=== PATIENT | female | born 1980 | race Caucasian/White ===

== ENCOUNTER 2020-02-02 07:08 | Emergency (ER) | payer OTHER ==
[2020-02-02] MEDS ORDERED: HYDROmorphone 1 MG/ML CARPUJECT IVP STA (07:22)
[2020-02-02] MEDS ORDERED: ONDANSETRON 4 MG/2 ML VIAL IVP STA (07:22)
--- NOTE | 2020-02-02 07:27 | ED Physician Documentation ---
PD HPI ABD PAIN - Stated complaint Stated Complaint: ABD PX - History obtained from History obtained from: Patient - Additional information Additional information: Previously healthy 40-year-old woman with no history of abdominal issues or a bdominal surgeries presents with sudden onset lower abdominal pain that is central starting at 6 AM. She never had this before. No trouble with bowel movements or urination. She has nauseous. Denies vaginal discharge or bleeding. Last menses was approximately 10 days ago. She is trying to get . Review of Systems Ten Systems: 10 systems reviewed and negative Constitutional: reports: Reviewed and negative Ears: reports: Reviewed and negative Nose: reports: Reviewed and negative Throat: reports: Reviewed and negative PD PAST MEDICAL HISTORY - Allergies Allergies/Adverse Reactions: Allergies Allergy/AdvReac Type Severity Reaction Status Date / Time amoxicillin Allergy Rash Verified 02/02/20 07:24 PD ED PE NORMAL - Vitals Vital signs reviewed: Yes - General General: Alert and oriented X 3 (She appears restless and uncomfortable due to the pain.) - HEENT HEENT: PERRL, EOMI - Neck Neck: Supple, no meningeal sign, No bony TTP - Cardiac Cardiac: RRR, No murmur - Respiratory Respiratory: No respiratory distress, Clear bilaterally - Abdomen Abdomen: Other (Tender in the central low abdomen, does not seem to lateralize. No surgical signs.) - Back Back: No CVA TTP, No spinal TTP - Derm Derm: Normal color, Warm and dry - Extremities Extremities: No edema, No calf tenderness / cord - Neuro Neuro: Alert and oriented X 3, No motor deficit, No sensory deficit, Normal speech - Psych Psych: Normal mood, Normal affect Results - Vitals Vitals: Vital Signs - 24 hr 02/02/20 02/02/20 07:19 08:29 Temperature 36.4 C L Heart Rate 92 57 L Respiratory 16 18 Rate Blood Pressure 133/87 H 103/65 O2 Saturation 98 100 Oxygen O2 Source Room air - Labs Labs: Laboratory Tests 02/02/20 02/02/20 02/02/20 07:30 07:30 07:30 WBC 6.9 RBC 4.24 Hgb 13.8 Hct 39.0 MCV 92.0 MCH 32.5 H MCHC 35.4 RDW 11.9 L Plt Count 344 MPV 9.2 Neut # (Auto) 3.4 Lymph # (Auto) 2.5 [place] # (Auto) 0.7 Eos # (Auto) 0.2 Baso # (Auto) 0.0 Absolute Nucleated RBC 0.00 Nucleated RBC % 0.0 Sodium 138 Potassium 3.5 Chloride 103 Carbon Dioxide 23 Anion Gap 12.0 BUN 9 Creatinine 0.8 Estimated GFR (MDRD) 80 L Glucose 92 Calcium 9.1 Total Bilirubin 1.1 H AST 20 ALT 15 Alkaline Phosphatase 51 Total Protein 7.3 Albumin 4.5 Globulin 2.8 Albumin/Globulin Ratio 1.6 Lipase 35 Urine Color YELLOW Urine Clarity CLEAR Urine pH 8.0 H Ur Specific [place] 1.015 Urine Protein NEGATIVE Urine Glucose (UA) NEGATIVE Urine Ketones NEGATIVE Urine Occult Blood NEGATIVE Urine Nitrite NEGATIVE Urine Bilirubin NEGATIVE Urine Urobilinogen 0.2 (NORMAL) Ur Leukocyte Esterase NEGATIVE Ur Microscopic Review NOT INDICATED Urine Culture Comments NOT INDICATED Urine HCG, Qual NEGATIVE PD MEDICAL DECISION MAKING - ED course ED course: 40-year-old woman presents with sudden severe central pelvic pain. Benign exam though. Ultrasound done and negative. On return from ultrasound she had been pain-free for about an hour. She remained nontender. Departure - Departure Disposition: 01 Home, Self Care Clinical Impression: Pelvic pain Condition: Good Record reviewed to determine appropriate education?: Yes Instructions: ED Pelvic Pain [facility] Comments: The cause of your pain today is unclear, but thankfully it is gone. Ultrasound and labs are normal. Return if it recurs. Do not drink or drive today. Forms: Activity restrictions
[2020-02-02 07:45] LABS: BASOPHILS % (AUTO) 0.4 %; EOSINOPHILS # (AUTO) 0.2 10^3/uL (0.0-0.7); EOSINOPHILS % (AUTO) 2.3 %; HGB - HEMOGLOBIN 13.8 g/dL (12.0-16.0); LYMPHOCYTES # (AUTO) 2.5 10^3/uL (1.5-3.5); LYMPHOCYTES % (AUTO) 36.9 %; MEAN CORPUSCULAR HEMOGLOBIN 32.5 pg (27.0-31.0); MEAN CORPUSCULAR HGB CONC 35.4 g/dL (32.0-36.0); MEAN PLATELET VOLUME 9.2 fL (7.9-10.8); MONOCYTES # (AUTO) 0.7 10^3/uL (0.0-1.0); MONOCYTES % (AUTO) 10.4 %; NEUTROPHILS # (AUTO) 3.4 10^3/uL (1.5-6.6); NEUTROPHILS % (AUTO) 49.7 %; PLT - PLATELET COUNT 344 10^3/uL (130-450); RED BLOOD COUNT 4.24 10^6/uL (4.20-5.40); RED CELL DISTRIBUTION WIDTH 11.9 % (12.0-15.0); WHITE BLOOD COUNT 6.9 x10^3/uL (4.8-10.8)
[2020-02-02 07:59] LABS: BILIRUBIN,URINE NEGATIVE (NEGATIVE); GLUCOSE, URINE (UA) NEGATIVE (NEGATIVE); KETONES,URINE (UA) NEGATIVE (NEGATIVE); LEUKOCYTE ESTERASE, URINE NEGATIVE (NEGATIVE); NITRITE,URINE NEGATIVE (NEGATIVE); OCCULT BLOOD,URINE NEGATIVE (NEGATIVE); PROTEIN,URINE NEGATIVE (NEGATIVE); UROBILINOGEN,URINE 0.2 (NORMAL) E.U./dL (NORMAL)
[2020-02-02 08:00] LABS: CLARITY,URINE CLEAR (CLEAR)
[2020-02-02 08:02] LABS: HCG UR QUAL NEGATIVE
[2020-02-02 08:04] LABS: ALBUMIN 4.5 g/dL (3.2-5.5); ALBUMIN/GLOBULIN RATIO 1.6 (1.0-2.2); BILIRUBIN,TOTAL 1.1 mg/dL (0.2-1.0); CALCIUM 9.1 mg/dL (8.5-10.3); CREATININE 0.8 mg/dL (0.4-1.0); TOTAL PROTEIN 7.3 g/dL (6.7-8.2)
--- NOTE | 2020-02-02 09:22 | Ultrasound Report ---
PROCEDURE: Pelvic w/Transvag+Doppler Comp INDICATIONS: sudden pelvic pain TECHNIQUE: Real-time scanning was performed of the pelvic organs, with image documentation. Additional endovagi nal scanning was necessary due to incomplete visualization of the adnexal and endometrial structures by transabdominal scanning. COMPARISON: None. FINDINGS: Transabdominal scanning: Limited scanning through the kidneys shows no hydronephrosis. No pathologi c free abdominal or pelvic fluid. Endovaginal scanning: Uterus: Uterus is normal in size at 8.3 x 3.5 x 4.5 cm. 1.6 x 0.9 x 1.3 cm subserosal fibroid is not ed in posterior myometrium near midline. The endometrium measures 7.1 mm in combined thickness. Ovaries: Right ovary measures 3.2 x 3.1 x 2.3 cm in size. Left ovary measures 3.9 x 2.5 x 2 cm in si ze. No gross solid-appearing ovarian lesion. Normal arterial and venous flow is seen in bilateral ova aby on color Doppler images. Subcentimeter follicles are noted in bilateral ovaries. IMPRESSION: 1. Small uterine fibroid as above. No endometrial mass or fluid. No pelvic free fluid. 2. Normal-appearing bilateral ovaries. No evidence of ovarian torsion. Reviewed by: Donald Montero MD on 02/02/2020 8:20 AM REGI Approved by: Donald Montero MD on 02/02/2020 8:20 AM REGI Station ID: [id number]
[2020-02-02] MEDS ORDERED: IOVERSOL 320 100 ML VIAL IVP ONE (09:26)
[2020-02-02 09:29] VITALS: BP 127/82
== END 2020-02-02 09:32 | disposition home or self-care (01) ==
LOC: ED 07:08
DX: R10.2 Pelvic and perineal pain (principal); D25.9 Leiomyoma of uterus, unspecified
CPT/HCPCS: 36415; 76830; 76856; 80053; 81003; 81025; 83690; 85025; 93975; 99282; 99284; J1170; 81001; 87086

== ENCOUNTER 2020-04-04 15:29 | Outpatient (CLI) | payer OTHER ==
--- NOTE | 2020-04-04 16:49 | Ultrasound Report ---
PROCEDURE: OB First Trimester w/TV INDICATIONS: SPOTTING EARLY OUTSIDE/PRIOR DATING DATA: Last menstrual period (LMP): 01/21/2020. LMP-based estimated date of delivery (KARTHIK): 10/27/2020. First dating scan (date and location): Not performed. Estimated date of delivery (KARTHIK) from first dating scan: See below. TECHNIQUE: Real-time scanning was performed of the fetus and maternal pelvic organs, with image documentation. Endovaginal scanning was also performed to better visualize the fetus and maternal ovaries. COMPARISON: None. FINDINGS: Embryo: There is a intrauterine gestational sac measuring approximately 2.4 cm in size and correlati ng with an estimated sonographic gestational age of approximately 7 weeks and 3 days. There are 2 sma ll cystic structures possibly representing 2 yolk sacs versus a yolk sac and empty amnion. No c ardiac activity noted. No pole seen. Small perigestational hemorrhage is visualized measuring 1 .8 x 0.8 x 1.8 cm. Measurement variability in dating: +/- 4 weeks by LMP, +/- 7 days by mean sac diameter (use before 6 weeks gestation if crown-rump length not able to be measured), +/- 5 days by crown-rump length (6-12 weeks gestation). Maternal organs: There is a intrauterine fibroid seen in the posterior lower uterine segment measurin g 1.8 x 0.9 x 1.6 cm.. There is a right corpus luteal cyst measuring 2.3 x 1.5 x 1.9 cm. Limited zoraida ges through the kidneys demonstrate no hydronephrosis. IMPRESSION: 1. Single intrauterine gestational sac measuring approximately 7 weeks and 3 days by mean gestational sac diameter of approximately 2.4 cm measured by transvaginal imaging. There is no pole or fet al cardiac activity visualized. There is a possible double yolk sac versus a yolk sac and an empty am nion. Findings are suspicious but not diagnostic for early failure. Recommend continued cli nical and laboratory surveillance with serial quantitative hCG measurements to document expected rate of rise or decline. Short interval follow-up imaging as needed. 2. 1.9 cm posterior lower uterine segment uterine fibroid. 3. 2.3 cm right corpus luteal cyst. 4. Small perigestational hemorrhage. Reviewed by: Isra Estrada MD on 04/04/2020 4:47 PM PST Approved by: Isra Estrada MD on 04/04/2020 4:47 PM PST Station ID: [id number]
== END 2020-04-04 15:30 | disposition home or self-care (01) ==
LOC: DI 15:29
PROVIDERS: ATTEND Midwife
DX: O20.0 Threatened abortion (principal); Z3A.01 Less than 8 weeks gestation of pregnancy

== ENCOUNTER 2021-04-19 08:36 | Outpatient (CLI) | payer OTHER | END 2021-04-19 08:37 | disposition home or self-care (01) | LOC: LAB.S 08:36 | PROVIDERS: ATTEND Obstetrics & Gynecology Reproductive Endocrinology | DX: Z13.29 Encounter for screening for other suspected endocrine disorder (principal) | CPT/HCPCS: 36415; 84443 ==

== ENCOUNTER 2021-06-28 15:24 | Outpatient (CLI) | payer OTHER | END 2021-06-28 15:25 | disposition home or self-care (01) | LOC: LAB.S 15:24 | PROVIDERS: ATTEND Midwife | DX: O09.511 Supervision of elderly primigravida, first trimester (principal) | CPT/HCPCS: 36415; 84702 ==

== ENCOUNTER 2021-08-16 08:00 | Outpatient (CLI) | payer OTHER ==
[2021-08-16 20:48] LABS: T4 (THYROXINE) 9.45 ug/dL (6.09-12.23)
[2021-08-16 20:51] LABS: THYROID STIMULATING HORMONE 4.15 uIU/mL (0.34-5.60)
[2021-08-16 20:53] LABS: FREE T3 3.29 pg/mL (2.5-3.9)
== END 2021-08-17 14:46 | disposition home or self-care (01) ==
LOC: LAB.S 08:00
DX: E03.9 Hypothyroidism, unspecified (principal)
CPT/HCPCS: 36415; 84436; 84443; 84481

== ENCOUNTER 2021-09-24 15:49 | Outpatient (CLI) | payer OTHER | END 2021-09-24 15:50 | disposition home or self-care (01) | LOC: LAB.S 15:49 | PROVIDERS: ATTEND Naturopath | DX: E03.9 Hypothyroidism, unspecified (principal) | CPT/HCPCS: 36415; 84443 ==

== ENCOUNTER 2022-01-07 13:32 | Outpatient (CLI) | payer OTHER ==
[2022-01-07 19:53] LABS: BASOPHILS % (AUTO) 0.3 %; EOSINOPHILS # (AUTO) 0.1 10^3/uL (0.0-0.7); EOSINOPHILS % (AUTO) 0.5 %; HCT - HEMATOCRIT 35.5 % (37.0-47.0); HGB - HEMOGLOBIN 12.4 g/dL (12.0-16.0); LYMPHOCYTES # (AUTO) 1.9 10^3/uL (1.5-3.5); LYMPHOCYTES % (AUTO) 17.3 %; MEAN CORPUSCULAR HEMOGLOBIN 33.1 pg (27.0-31.0); MEAN CORPUSCULAR HGB CONC 34.9 g/dL (32.0-36.0); MEAN CORPUSCULAR VOLUME 94.7 fL (81.0-99.0); MEAN PLATELET VOLUME 10.8 fL (7.9-10.8); MONOCYTES # (AUTO) 0.7 10^3/uL (0.0-1.0); MONOCYTES % (AUTO) 6.3 %; NEUTROPHILS # (AUTO) 8.3 10^3/uL (1.5-6.6); NEUTROPHILS % (AUTO) 75.2 %; PLT - PLATELET COUNT 245 10^3/uL (130-450); RED BLOOD COUNT 3.75 10^6/uL (4.20-5.40); RED CELL DISTRIBUTION WIDTH 12.7 % (12.0-15.0); WHITE BLOOD COUNT 11.1 x10^3/uL (4.8-10.8)
[2022-01-07 20:28] LABS: T3 UPTAKE 28.9 % (32.0-48.4)
[2022-01-07 20:29] LABS: T4 (THYROXINE) 6.81 ug/dL (6.09-12.23)
[2022-01-07 20:35] LABS: FREE T4 (FREE THYROXINE) 0.63 ng/dL (0.58-1.64)
== END 2022-01-07 13:33 | disposition home or self-care (01) ==
LOC: LAB.S 13:32
PROVIDERS: ATTEND Naturopath
DX: E03.9 Hypothyroidism, unspecified (principal)
CPT/HCPCS: 36415; 84436; 84439; 84443; 84479; 85025

== ENCOUNTER 2022-01-17 10:36 | Outpatient (CLI) | payer OTHER ==
[2022-01-17 14:38] LABS: % IRON SATURATION 84 % (20-50); IRON 330 ug/dL (28-170); TOTAL IRON BINDING CAPACITY 391 ug/dL (250-450); TRANSFERRIN 279 mg/dL (192-382)
== END 2022-01-17 10:37 | disposition home or self-care (01) ==
LOC: LAB.S 10:36
PROVIDERS: ATTEND Naturopath
DX: R53.83 Other fatigue (principal); R71.0 Precipitous drop in hematocrit
CPT/HCPCS: 36415; 82728; 83540; 84466

== ENCOUNTER 2022-02-21 03:49 | Inpatient (IN) | payer OTHER ==
[2022-02-21] MEDS ORDERED: LACTATED RINGERS 1,000 ML ONE ×2 (05:05→09:42)
[2022-02-21] MEDS ORDERED: miSOPROStoL 200 MCG TABLET ONE (05:05)
[2022-02-21] MEDS ORDERED: OXYTOCIN 10 UNIT/ML VIAL ONE (05:05)
[2022-02-21] MEDS ORDERED: SODIUM CHLORIDE FLUSH 0.9% 10 ML SYRINGE IVP PRN (05:17)
[2022-02-21] MEDS ORDERED: TRANEXAMIC ACID IN NACL 1,000 MG/100 ML BAG IV PRN (05:17)
[2022-02-21] MEDS ORDERED: hydrALAZINE INJ 20 MG/ML VIAL IVP PRN ×2 (05:17)
[2022-02-21] MEDS ORDERED: TERBUTALINE 1 MG/ML VIAL SUBQ PRN (05:17)
[2022-02-21] MEDS ORDERED: CARBOPROST TROMETHAMINE 250 MCG/ML AMP IM PRN (05:17)
[2022-02-21] MEDS ORDERED: OXYTOCIN 10 UNIT/ML VIAL IM PRN (05:17)
[2022-02-21] MEDS ORDERED: LABETALOL 20 MG/4 ML SYRINGE IVP PRN ×3 (05:17)
[2022-02-21] MEDS ORDERED: METHYLERGONOVINE 0.2 MG/ML VIAL IM PRN (05:17)
[2022-02-21] MEDS ORDERED: lidocaine 1% 20 ML MDV ID PRN (05:17)
[2022-02-21] MEDS ORDERED: miSOPROStoL 200 MCG TABLET BC PRN (05:17)
[2022-02-21] MEDS ORDERED: NIFEdipine 10 MG CAPSULE PO PRN (05:17)
[2022-02-21] MEDS ORDERED: fentaNYL 100 MCG/2 ML VIAL IVP PRN (05:17)
[2022-02-21] MEDS ORDERED: miSOPROStoL 200 MCG TABLET PR PRN (05:17)
[2022-02-21] MEDS ORDERED: OXYTOCIN/SODIUM CHLORIDE 500 ML IV PRN ×2 (05:17→22:05)
--- NOTE | 2022-02-21 05:28 | HISTORY & PHYSICAL EXAMINATION ---
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 She has been having a attempted home delivery with assistant analyst and Cesar from [place]. She comes in for pain control today. She has good movement. Membrane rupture approximately 24 hours ago No ADAIR/BV or RUQP. No vaginal bleeding. Denies nausea and vomiting. Denies urinary urgency or dysuria. All other symptoms reviewed and were negative except per HPI. Course Unknown PMH Hypothyroidism: Managed with [place] Thyroid. PSH No prior surgeries OB History SH Denies tobacco, ago, drug Family History No pertinent history Allergies Allergic to amoxicillin Medications None Physical exam: General: Alert, oriented, no acute distress, but actively laboring Head: Normal cephalic atraumatic Eyes: PERRLA, extraocular motions intact. Respiratory: Normal rate of respiration. No accessory muscle use, normal respiratory effort. Cardiovascular: Regular rate and rhythm Abdomen: Gravid, nontender, nondistended Extremities: Normal range of motion Neuro: Oriented x3. Normal movements Psych: Appropriate mood and affect. Normal judgment and insight SVE: 10/100/0 FHT: 135 bpm baseline, moderate variability, accelerations present, no decelerations. [place]: 5 to 6 minutes Plan 42-year-old G1, P0 presenting for labor at term 1. Term labor -Plan admit for labor. -Continuous monitoring -Refused IV. Discussed the risks of hemorrhage and aid of oxytocin. -Refuses IV and IM oxytocin. 2. 40 weeks gestation -Good care per patient. -Consented to UDS. 3. Prolonged rupture of membranes -Approximately 24 hours at time of admission. Discussed increased risk of infection. -Declines GBS sepsis prophylaxis 4. GBS unknown -GBS collected today. Discussed likelihood of extended observation of baby. 5. [place] Thyroid -managed with [place] thyroid. Will resume Meds/Allgy - Allergies Allergies/Adverse Reactions: Allergies Allergy/AdvReac Type Severity Reaction Status Date / Time amoxicillin Allergy Rash Verified 02/02/20 07:24
[2022-02-21 05:49] LABS: BASOPHILS % (AUTO) 0.3 %; HGB - HEMOGLOBIN 11.4 g/dL (12.0-16.0); LYMPHOCYTES % (AUTO) 4.8 %; MEAN CORPUSCULAR HEMOGLOBIN 32.3 pg (27.0-31.0); MEAN CORPUSCULAR HGB CONC 34.5 g/dL (32.0-36.0); MEAN CORPUSCULAR VOLUME 93.5 fL (81.0-99.0); MEAN PLATELET VOLUME 9.9 fL (7.9-10.8); NEUTROPHILS % (AUTO) 87.8 %; PLT - PLATELET COUNT 266 10^3/uL (130-450); RED BLOOD COUNT 3.53 10^6/uL (4.20-5.40); RED CELL DISTRIBUTION WIDTH 12.4 % (12.0-15.0); WHITE BLOOD COUNT 29.6 x10^3/uL (4.8-10.8)
[2022-02-21] MEDS ORDERED: SODIUM CHLORIDE FLUSH 0.9% 10 ML SYRINGE IVP SCH (06:00)
[2022-02-21 06:15] LABS: ABNORMAL LYMPHS % (MANUAL) 0 %
[2022-02-21 06:16] LABS: BAND NEUTROPHILS % (MANUAL) 3 %; LYMPHOCYTES # (MANUAL) 1.5 10^3/uL (1.5-3.5); LYMPHOCYTES % (MANUAL) 5 %; MONOCYTES # (MANUAL) 1.5 10^3/uL (0.0-1.0); NEUTROPHILS # (MANUAL) 26.6 10^3/uL (1.5-6.6); RBC MORPHOLOGY (MULTIPLE) NORMAL APPEARANCE (NORMAL)
[2022-02-21 06:17] LABS: DIFFERENTIAL COMMENT MANUAL DIFFERENTIAL; PLATELET ESTIMATE, MANUAL NORMAL (130-450,000) (NORMAL); PLATELET MORPHOLOGY NORMAL APPEARANCE (NORMAL); WBC MORPHOLOGY (MULTIPLE) NORMAL APPEARANCE (NORMAL)
--- NOTE | 2022-02-21 07:25 | PROVIDER PROGRESS NOTE ---
Labor Progress Note - Uterine Monitoring Other Uterine Monitoring: Declines Tocometer - Monitoring Monitor Mode: positive: External ultrasound Heart Rate Baseline: 130 Heart Rate Variability: positive: Moderate (6-25 bmp) Accelerations: positive: Present, 15x15 Decelerations: positive: Variable Strip Review: positive: Category II - Labor Progress Note Labor Progress Note/Additional Text: Patient has been pushing for approximately 2 hours. Declines vaginal exam. Intermittent variable decelerations, resolving with position changes. Category 2. Contractions still greater than 5 minutes apart. Variability remains good. Infrequent contractions, declines oxytocin augmentation
--- NOTE | 2022-02-21 10:01 | PROVIDER PROGRESS NOTE ---
Subjective - Prog Note Date Prog Note Date: 02/21/22 Prog Note Time: 09:59 - Subjective Subjective: She has been pursuing more than 4 hours and membranes ruptured more than 24 hours and her bladder was a full therefore straight catheterization was needed, 1700 cc clean urine was obtained. Her contraction has been spaced out to 7 to 10 minutes therefore Pitocin augmentation is not needed. She is afebrile and monitoring did not show any significant deceleration. She consented for Pitocin augmentation therefore is started. She still want us to minimize any intervention and we respect that. Objective - Vital Signs/Intake & Output Vital Signs: Vital Signs x48h Temp Pulse Resp BP 02/21/22 04:50 98.9 F 84 18 114/65 02/21/22 04:32 98.7 F Intake & Output: Intake & Output 02/18/22 02/19/22 02/20/22 02/21/22 23:59 23:59 23:59 23:59 Intake Total 300 Output Total 1700 Balance -1400 - Lab Results Fish Bones: 02/21/22 05:40 Other Labs: Lab Results x24hrs 02/21/22 02/21/22 02/21/22 Range/Units 06:43 05:40 05:40 WBC 29.6 H (4.8-10.8) x10^3/uL RBC 3.53 L (4.20-5.40) 10^6/uL Hgb 11.4 L (12.0-16.0) g/dL Hct 33.0 L (37.0-47.0) % MCV 93.5 (81.0-99.0) fL MCH 32.3 H (27.0-31.0) pg MCHC 34.5 (32.0-36.0) g/dL RDW 12.4 (12.0-15.0) % Plt Count 266 (130-450) 10^3/uL MPV 9.9 (7.9-10.8) fL Neut # (Auto) Not Reportable Lymph # (Auto) Not Reportable [place] # (Auto) Not Reportable Eos # (Auto) Not Reportable Baso # (Auto) Not Reportable Absolute Nucleated RBC Not Reportable Total Counted 100 Band Neuts % (Manual) 3 (0 - 10) % Abnorm Lymph % (Manual) 0 % Nucleated RBC % Not Reportable Neutrophils # (Manual) 26.6 H (1.5-6.6) 10^3/uL Lymphocytes # (Manual) 1.5 (1.5-3.5) 10^3/uL Monocytes # (Manual) 1.5 H (0.0-1.0) 10^3/uL Eosinophils # (Manual) 0.0 (0-0.7) 10^3/uL Basophils # (Manual) 0.0 (0-0.1) 10^3/uL Differential Comment MANUAL DIFFERENTIAL WBC Morphology NORMAL APPEARANCE (NORMAL) Platelet Estimate NORMAL (130-450,000) (NORMAL) Platelet Morphology NORMAL APPEARANCE (NORMAL) RBC Morph Micro Appear NORMAL APPEARANCE (NORMAL) Blood Type AB POSITIVE Blood Type Recheck AB POSITIVE Antibody Screen NEGATIVE
[2022-02-21] MEDS: CALCIUM CARBONATE CHEW 500 MG TABLET PO SCH ×3 (10:28→20:42)
[2022-02-21] MEDS: LACTATED RINGERS 1,000 ML IV SCH ×2 (10:28→17:36)
[2022-02-21] MEDS ORDERED: ROPIVACAINE 0.2% 200 MG/100 ML BAG EP ONE (11:08)
--- NOTE | 2022-02-21 11:09 | PROVIDER PROGRESS NOTE ---
Subjective - Subjective Pt reports feeling: No change (Since it has been many hours since she started to push, I asked her permission to check her by myself and she agreed. I found the cervix is about 6 [place] with the little swollen anterior lip and station is about 0. No significant caput was notified and we will call for an epidural. She agreed.) Objective - Vital Signs/Intake & Output Vital Signs: Vital Signs x48h Temp Pulse Resp BP 02/21/22 04:50 98.9 F 84 18 114/65 02/21/22 04:32 98.7 F Intake & Output: Intake & Output 02/18/22 02/19/22 02/20/22 02/21/22 23:59 23:59 23:59 23:59 Intake Total 300 Output Total 3400 Balance -3100 - Lab Results Fish Bones: 02/21/22 05:40 Other Labs: Lab Results x24hrs 02/21/22 02/21/22 02/21/22 Range/Units 06:43 05:40 05:40 WBC 29.6 H (4.8-10.8) x10^3/uL RBC 3.53 L (4.20-5.40) 10^6/uL Hgb 11.4 L (12.0-16.0) g/dL Hct 33.0 L (37.0-47.0) % MCV 93.5 (81.0-99.0) fL MCH 32.3 H (27.0-31.0) pg MCHC 34.5 (32.0-36.0) g/dL RDW 12.4 (12.0-15.0) % Plt Count 266 (130-450) 10^3/uL MPV 9.9 (7.9-10.8) fL Neut # (Auto) Not Reportable Lymph # (Auto) Not Reportable [place] # (Auto) Not Reportable Eos # (Auto) Not Reportable Baso # (Auto) Not Reportable Absolute Nucleated RBC Not Reportable Total Counted 100 Band Neuts % (Manual) 3 (0 - 10) % Abnorm Lymph % (Manual) 0 % Nucleated RBC % Not Reportable Neutrophils # (Manual) 26.6 H (1.5-6.6) 10^3/uL Lymphocytes # (Manual) 1.5 (1.5-3.5) 10^3/uL Monocytes # (Manual) 1.5 H (0.0-1.0) 10^3/uL Eosinophils # (Manual) 0.0 (0-0.7) 10^3/uL Basophils # (Manual) 0.0 (0-0.1) 10^3/uL Differential Comment MANUAL DIFFERENTIAL WBC Morphology NORMAL APPEARANCE (NORMAL) Platelet Estimate NORMAL (130-450,000) (NORMAL) Platelet Morphology NORMAL APPEARANCE (NORMAL) RBC Morph Micro Appear NORMAL APPEARANCE (NORMAL) Blood Type AB POSITIVE Blood Type Recheck AB POSITIVE Antibody Screen NEGATIVE
[2022-02-21] MEDS ORDERED: ROPIVACAINE 0.2% 200 MG/100 ML BAG EP PRN (12:19)
[2022-02-21] MEDS ORDERED: ONDANSETRON 4 MG/2 ML VIAL IVP PRN (12:19)
[2022-02-21] MEDS ORDERED: NALOXONE 0.4 MG/ML VIAL IVP PRN (12:19)
[2022-02-21] MEDS ORDERED: diphenhydrAMINE INJ 50 MG/ML VIAL IVP PRN (12:19)
[2022-02-21] MEDS ORDERED: METOCLOPRAMIDE 10 MG/2 ML VIAL IVP PRN (12:19)
[2022-02-21] MEDS ORDERED: ePHEDrine 50 MG/ML VIAL IVP PRN (12:19)
[2022-02-21] MEDS ORDERED: NALBUPHINE 10 MG/ML AMP IVP PRN (12:19)
--- NOTE | 2022-02-21 12:23 | ANESTHESIA ---
Pre-Anesthesia VS, & Labs - Diagnosis labor - Procedure epidural Vital Signs: Temp Pulse Resp BP Pulse Ox O2 Flow Rate 37.2 C 84 18 114/65 02/21/22 04:50 02/21/22 04:50 02/21/22 04:50 02/21/22 04:50 Height: 5 ft 8.5 in Weight (kg): 80.286 kg Body Mass Index: 26.5 BMI Classification: Overweight - NPO Other (clears) - Is Patient ?: Yes - Lab Results Current Lab Results: Laboratory Tests 02/21/22 06:43: Blood Type Recheck AB POSITIVE 02/21/22 05:40: WBC 29.6 H, RBC 3.53 L, Hgb 11.4 L, Hct 33.0 L, MCV 93.5, MCH 32.3 H, MCHC 34.5, RDW 12.4, Plt Count 266, MPV 9.9, Neut # (Auto) Not Reportable, Lymph # (Auto) Not Reportable, [place] # (Auto) Not Reportable, Eos # (Auto) Not Reportable, Baso # (Auto) Not Reportable, Absolute Nucleated RBC Not Reportable, Total Counted 100, Band Neuts % (Manual) 3, Abnorm Lymph % (Manual) 0, Nucleated RBC % Not Reportable, Neutrophils # (Manual) 26.6 H, Lymphocytes # (Manual) 1.5, Monocytes # (Manual) 1.5 H, Eosinophils # (Manual) 0.0, Basophils # (Manual) 0.0, Differential Comment MANUAL DIFFERENTIAL, WBC Morphology NORMAL APPEARANCE, Platelet Estimate NORMAL (130-450,000), Platelet Morphology NORMAL APPEARANCE, RBC Morph Micro Appear NORMAL APPEARANCE 02/21/22 05:40: Blood Type AB POSITIVE, Antibody Screen NEGATIVE Fish Bones: 02/21/22 05:40 Home Medications and Allergies Active Medications Calcium Carbonate/Glycine (Calcium Carbonate Chew 500 Mg Tablet) 500 mg PO BID GOUKL Last Admin: 02/21/22 10:28 Dose: 500 mg Carboprost Tromethamine (Carboprost Tromethamine 250 Mcg/Ml Amp) 250 mcg IM .ONCE PRN PRN Reason: Hemorrhage Fentanyl (Fentanyl 100 Mcg/2 Ml Vial) 50 mcg IVP Q1H PRN PRN Reason: Severe Pain (score 7-10) Hydralazine HCl (Hydralazine Inj 20 Mg/Ml Vial) 5 - 10 mg IVP Q20M PRN; Protocol PRN Reason: SBP> or= 160 OR DBP> or= 110 Hydralazine HCl (Hydralazine Inj 20 Mg/Ml Vial) 10 mg IVP .ONCE PRN; Protocol PRN Reason: SBP> or= 160 OR DBP> or= 110 Oxytocin/Sodium Chloride (Pitocin/Sodium Chloride) 500 mls @ 999 mls/hr IV PRN PRN; Protocol PRN Reason: POST- HEMORR PREVENTION Last Admin: 02/21/22 10:01 Dose: 1 milliunit/min, 1 mls/hr Tranexamic Acid (Tranexamic 1,000 Mg/100ml-Nacl) 1,000 mg in 100 mls @ 600 mls/hr IV Q30M PRN PRN Reason: EBL >1200mL and within 3hr Lactated Ringer's (Lr) 1,000 mls @ 125 mls/hr IV .Q8H GOKUL Last Admin: 02/21/22 10:28 Dose: 125 mls/hr Labetalol HCl (Labetalol 20 Mg/4 Ml Syringe) 20 - 80 mg IVP Q10M PRN; Protocol PRN Reason: SBP> or= 160 OR DBP> or= 110 Labetalol HCl (Labetalol 20 Mg/4 Ml Syringe) 20 mg IVP .ONCE PRN; Protocol PRN Reason: SBP> or= 160 OR DBP> or= 110 Labetalol HCl (Labetalol 20 Mg/4 Ml Syringe) 20 - 40 mg IVP Q10M PRN; Protocol PRN Reason: SBP> or= 160 OR DBP> or= 110 Lidocaine HCl (Lidocaine 1% 20 Ml Mdv) 20 ml ID .ONCE PRN PRN Reason: PERINEAL REPAIR Stop: 02/24/22 05:18 Methylergonovine Maleate (Methylergonovine 0.2 Mg/Ml Vial) 0.2 mg IM .ONCE PRN PRN Reason: Hemorrhage Misoprostol (Misoprostol 200 Mcg Tablet) 600 mcg BC .ONCE PRN PRN Reason: Hemorrhage Misoprostol (Misoprostol 200 Mcg Tablet) 800 mcg UT .ONCE PRN PRN Reason: Hemorrhage Nifedipine (Nifedipine 10 Mg Capsule) 10 - 20 mg PO Q20M PRN; Protocol PRN Reason: SBP> or= 160 OR DBP> or= 110 Oxytocin (Oxytocin 10 Unit/Ml Vial) 10 unit IM .ONCE PRN PRN Reason: Step One if no IV access. Sodium Chloride (Sodium Chloride Flush 0.9% 10 Ml Syringe) 10 ml IVP PRN PRN PRN Reason: NEEDED PER PROVIDER ORDERS Sodium Chloride (Sodium Chloride Flush 0.9% 10 Ml Syringe) 10 ml IVP Q8H GOKUL Terbutaline Sulfate (Terbutaline 1 Mg/Ml Vial) 0.25 mg SUBQ .ONCE PRN PRN Reason: Tachystole Allergies/Adverse Reactions: Allergies Allergy/AdvReac Type Severity Reaction Status Date / Time amoxicillin Allergy Rash Verified 02/02/20 07:24 Anes History & Medical History - Anesthetic History Anesthesia Complications: reports: No previous complications - Medical History Cardiovascular: reports: None Pulmonary: reports: None Smoking Status: Never smoker - Obstetrical History : 1 Parity: 0 Events: reports: None Complications: reports: None Exam General: Alert, Oriented x3 Dental: WNL Mouth Opening: Greater than 4 Fingerbreadths Neck Mobility: Normal Mallampati classification: II Thyromental Distance: greater than 6 cm Respiratory: Lungs clear Cardiovascular: Regular rate Plan Anesthesia Type: Epidural Consent for Procedure(s) Verified and Reviewed: Yes Code Status: Attempt Resuscitation ASA classification: 2-Mild systemic disease Is this case an emergency?: No
--- NOTE | 2022-02-21 14:45 | PROVIDER PROGRESS NOTE ---
Subjective - Prog Note Date Prog Note Date: 02/21/22 Prog Note Time: 14:43 - Subjective Pt reports feeling: Improved (Epidural is very effective and she has been resting well. She is still on Pitocin and Batista catheter was inserted earlier. Cervix is 7 sonometer and station is +1 and she has been quite cooperative and her vital signs are stable. monitoring showed category 1. Plan: Continue to observe) Objective - Vital Signs/Intake & Output Intake & Output: Intake & Output 02/18/22 02/19/22 02/20/22 02/21/22 23:59 23:59 23:59 23:59 Intake Total 300 Output Total 3700 Balance -3400 - Lab Results Fish Bones: 02/21/22 05:40 Other Labs: Lab Results x24hrs 02/21/22 02/21/22 02/21/22 Range/Units 06:43 05:40 05:40 WBC 29.6 H (4.8-10.8) x10^3/uL RBC 3.53 L (4.20-5.40) 10^6/uL Hgb 11.4 L (12.0-16.0) g/dL Hct 33.0 L (37.0-47.0) % MCV 93.5 (81.0-99.0) fL MCH 32.3 H (27.0-31.0) pg MCHC 34.5 (32.0-36.0) g/dL RDW 12.4 (12.0-15.0) % Plt Count 266 (130-450) 10^3/uL MPV 9.9 (7.9-10.8) fL Neut # (Auto) Not Reportable Lymph # (Auto) Not Reportable [place] # (Auto) Not Reportable Eos # (Auto) Not Reportable Baso # (Auto) Not Reportable Absolute Nucleated RBC Not Reportable Total Counted 100 Band Neuts % (Manual) 3 (0 - 10) % Abnorm Lymph % (Manual) 0 % Nucleated RBC % Not Reportable Neutrophils # (Manual) 26.6 H (1.5-6.6) 10^3/uL Lymphocytes # (Manual) 1.5 (1.5-3.5) 10^3/uL Monocytes # (Manual) 1.5 H (0.0-1.0) 10^3/uL Eosinophils # (Manual) 0.0 (0-0.7) 10^3/uL Basophils # (Manual) 0.0 (0-0.1) 10^3/uL Differential Comment MANUAL DIFFERENTIAL WBC Morphology NORMAL APPEARANCE (NORMAL) Platelet Estimate NORMAL (130-450,000) (NORMAL) Platelet Morphology NORMAL APPEARANCE (NORMAL) RBC Morph Micro Appear NORMAL APPEARANCE (NORMAL) Blood Type AB POSITIVE Blood Type Recheck AB POSITIVE Antibody Screen NEGATIVE
--- NOTE | 2022-02-21 18:00 | PROVIDER PROGRESS NOTE ---
Subjective - Prog Note Date Prog Note Date: 02/21/22 Prog Note Time: 17:58 - Subjective Pt reports feeling: Improved (Cx: 100/+1 Afebrile. FHT: no deceleration P: will let her to start to push) Objective - Vital Signs/Intake & Output Intake & Output: Intake & Output 02/18/22 02/19/22 02/20/22 02/21/22 23:59 23:59 23:59 23:59 Intake Total 1191.667 Output Total 3700 Balance -2508.333 - Lab Results Fish Bones: 02/21/22 05:40 Other Labs: Lab Results x24hrs 02/21/22 02/21/22 02/21/22 Range/Units 06:43 05:40 05:40 WBC 29.6 H (4.8-10.8) x10^3/uL RBC 3.53 L (4.20-5.40) 10^6/uL Hgb 11.4 L (12.0-16.0) g/dL Hct 33.0 L (37.0-47.0) % MCV 93.5 (81.0-99.0) fL MCH 32.3 H (27.0-31.0) pg MCHC 34.5 (32.0-36.0) g/dL RDW 12.4 (12.0-15.0) % Plt Count 266 (130-450) 10^3/uL MPV 9.9 (7.9-10.8) fL Neut # (Auto) Not Reportable Lymph # (Auto) Not Reportable [place] # (Auto) Not Reportable Eos # (Auto) Not Reportable Baso # (Auto) Not Reportable Absolute Nucleated RBC Not Reportable Total Counted 100 Band Neuts % (Manual) 3 (0 - 10) % Abnorm Lymph % (Manual) 0 % Nucleated RBC % Not Reportable Neutrophils # (Manual) 26.6 H (1.5-6.6) 10^3/uL Lymphocytes # (Manual) 1.5 (1.5-3.5) 10^3/uL Monocytes # (Manual) 1.5 H (0.0-1.0) 10^3/uL Eosinophils # (Manual) 0.0 (0-0.7) 10^3/uL Basophils # (Manual) 0.0 (0-0.1) 10^3/uL Differential Comment MANUAL DIFFERENTIAL WBC Morphology NORMAL APPEARANCE (NORMAL) Platelet Estimate NORMAL (130-450,000) (NORMAL) Platelet Morphology NORMAL APPEARANCE (NORMAL) RBC Morph Micro Appear NORMAL APPEARANCE (NORMAL) Blood Type AB POSITIVE Blood Type Recheck AB POSITIVE Antibody Screen NEGATIVE
--- NOTE | 2022-02-21 20:36 | PROVIDER PROGRESS NOTE ---
Subjective - Prog Note Date Prog Note Date: 02/21/22 Prog Note Time: 20:17 - Subjective Subjective: Been pushing since 6: 00 PM. +2 with caput. Discussed 3 options, 1, expectant 2, vacuum assisted 3, section She decided to try pushing. Objective - Vital Signs/Intake & Output Intake & Output: Intake & Output 02/18/22 02/19/22 02/20/22 02/21/22 23:59 23:59 23:59 23:59 Intake Total 1191.667 Output Total 3700 Balance -2508.333 - Lab Results Fish Bones: 02/21/22 05:40 Other Labs: Lab Results x24hrs 02/21/22 02/21/22 02/21/22 Range/Units 06:43 05:40 05:40 WBC 29.6 H (4.8-10.8) x10^3/uL RBC 3.53 L (4.20-5.40) 10^6/uL Hgb 11.4 L (12.0-16.0) g/dL Hct 33.0 L (37.0-47.0) % MCV 93.5 (81.0-99.0) fL MCH 32.3 H (27.0-31.0) pg MCHC 34.5 (32.0-36.0) g/dL RDW 12.4 (12.0-15.0) % Plt Count 266 (130-450) 10^3/uL MPV 9.9 (7.9-10.8) fL Neut # (Auto) Not Reportable Lymph # (Auto) Not Reportable Rogers # (Auto) Not Reportable Eos # (Auto) Not Reportable Baso # (Auto) Not Reportable Absolute Nucleated RBC Not Reportable Total Counted 100 Band Neuts % (Manual) 3 (0 - 10) % Abnorm Lymph % (Manual) 0 % Nucleated RBC % Not Reportable Neutrophils # (Manual) 26.6 H (1.5-6.6) 10^3/uL Lymphocytes # (Manual) 1.5 (1.5-3.5) 10^3/uL Monocytes # (Manual) 1.5 H (0.0-1.0) 10^3/uL Eosinophils # (Manual) 0.0 (0-0.7) 10^3/uL Basophils # (Manual) 0.0 (0-0.1) 10^3/uL Differential Comment MANUAL DIFFERENTIAL WBC Morphology NORMAL APPEARANCE (NORMAL) Platelet Estimate NORMAL (130-450,000) (NORMAL) Platelet Morphology NORMAL APPEARANCE (NORMAL) RBC Morph Micro Appear NORMAL APPEARANCE (NORMAL) Blood Type AB POSITIVE Blood Type Recheck AB POSITIVE Antibody Screen NEGATIVE Crossmatch IS Only See Detail
[2022-02-21] MEDS ORDERED: MINERAL OIL LIGHT 10 ML MC ONE (20:50)
--- NOTE | 2022-02-21 21:57 | DELIVERY NOTE ---
Delivery Note - Labor Labor: positive: Augmented by oxytocin - Delivery Method Delivery Method: positive: Spontaneous vaginal delivery - Presentation Presentation: positive: Vertex, NAZANIN - left occiput anterior - Nuchal Cord Nuchal Cord: positive: None - Anesthetic Anesthetic Type: - Amniotic Fluid Description Amniotic Fluid Description: positive: Light meconium - Laceration Laceration: positive: 2nd degree, Vaginal - Delivery Outcome Delivery Outcome: positive: Livebirth - Beemer: positive: Placed in direct skin contact with mother, Bulb syringe Beemer sex: positive: Male - Cord Cord: positive: 3 vessels - Placenta Placenta: positive: Intact, Spontaneous - Estimated Blood Loss Estimated Blood Loss (in cc): 250 - Post Delivery Events Post Delivery Events: positive: No post delivery events - Delivery Comments (Free Text/Narrative) Delivery Comments (Free Text/Narrative): Delivery Summary: Patient was placed in the dorsal lithotomy position. Upon maternal pushing the head was delivered atraumatically followed by the anterior shoulder, posterior shoulder, then the remainder of the 's body. A [ nale ] was delivered with APGARS of [ 8 ] at 1 minute and [ 9 ] at 5 minutes. The was placed on its mother's chest . After the cord finished pulsating, the umbilical cord was clamped times two and cut. The placenta with three vessel cord did not come out and we had to bring her back to OR for manual removal of Placenta. Thirty units of Pitocin were added to the IV fluid and allowed to run freely. Uterine massage was performed until uterus was deemed firm. [Upon inspection of the perineum, vagina and cervix were intact.] [ _2nd___ degree vaginal laceration was noted which was not repaired per patient"s request.][ Upon re-inspection the patient was hemostatic.] Uterus again massaged and found to be firm. Needle and sponge counts were correct. Patient was stable and brought to the OR. [ was stable and remained in room with dad.] weight is pending at this ernesto
[2022-02-21] MEDS ORDERED: LACTATED RINGERS 1,000 ML IV SCH (23:00)
[2022-02-21 23:46] LABS: CHLAMYDIA TRACHOMATIS DNA NEGATIVE (NEGATIVE); NEISSERIA GONORRHOEAE DNA NEGATIVE (NEGATIVE); TRICHOMONAS VAGINALIS DNA NEGATIVE (NEGATIVE)
[2022-02-22] MEDS ORDERED: MIDAZOLAM 2 MG/2 ML VIAL ONE (00:33)
[2022-02-22] MEDS ORDERED: PROPOFOL 200 MG/20 ML VIAL IVP ONE (00:42)
[2022-02-22] MEDS ORDERED: TRANEXAMIC ACID 1,000 MG/10 ML VIAL ONE (00:43)
[2022-02-22] MEDS ORDERED: ceFAZolin 1 GM VIAL ONE (00:45)
[2022-02-22] MEDS ORDERED: CEFAZOLIN 2G/50ML 0.9% NS 2 GM/50 ML BAG IV SCH (01:00)
[2022-02-22] MEDS ORDERED: ONDANSETRON 4 MG/2 ML VIAL ONE (01:02)
[2022-02-22] MEDS ORDERED: LIDOCAINE-PF 2% 10 ML AMP SUBQ ONE (01:02)
[2022-02-22] MEDS ORDERED: OXYTOCIN 10 UNIT/ML VIAL ONE (01:07)
[2022-02-22] MEDS ORDERED: LACTATED RINGERS 1,000 ML IV ONE (01:15)
--- NOTE | 2022-02-22 01:19 | OPERATIVE REPORT ---
Operative Report - General Admit Date: 02/21/22 Procedure Date: 02/22/22 Planned Procedure: manual removal of retained placenta Pre-Op Diagnosis: retained placenta Procedure Performed: Removal of retained placenta Post Op Diagnosis: retained placenta - Procedure Note Primary Surgeon: Anesthesia Provider: GRAHAM Anesthesia Technique: Epidural Pathology: Placenta Indications: Retained placenta Findings: No placental separation was noted in the uterine cavity Complications: None - Other Other Information/Narrative: Anesthesia:epidural and IV sedation Estimated blood loss:500 cc Findings: swollen external genitalia and 2nd degree vaginal laceration, no active bleeding retained placenta Specimen: placenta Complications: None Disposition: Stable to PACU Procedure the patient was taken to the operating room and monitored anesthesia care was obtained without difficulty. Patient was prepped and draped in the normal sterile fashion and placed in dorsal lithotomy position. The speculum was inserted and anterior lip of the cervix was grasped with a Ring forcep Active bleeding was Not noted. The uterine cavity was measured 25 centemeter and the cervix was Well visualized and there was no trauma to the cervix And manual exploration of the uterine cavity was done. No separation was appreciated and placenta was pulled with operators right hand and was able to remove the entire retained placenta. With #1 sharp curette the entire endometrial cavity was systemically curettaged and large amount of tissue was obtained. She tolerated the procedure well and was a transferred to the recovery room in stable condition. The EBL was 500 CC and a count of instrument and sponges were correct x2. Indications for the procedure: placenta was not delivered over 90 min and she requested to have it removed under anesthesia/ Surgical risks: The patient was informed of the risks and benefits of the procedure. Risks included but were not limited to bleeding, infection, injury to the vulva, vagina, or cervix, and uterine perforation. The patient expressed understanding of the risks involved, all questions were answered, and the patient consented to the procedure.
--- NOTE | 2022-02-22 01:48 | ANESTHESIA POST OP EVALUATION ---
Anesthesia Post Eval - Post Anesthesia Eval Vitals: Last Vital Signs Temp 37.5 C 02/22/22 01:42 Pulse 91 02/22/22 01:42 Resp 23 02/22/22 01:42 BP 133/95 H 02/22/22 01:42 Pulse Ox 100 02/22/22 01:42 O2 Flow Rate CV Function Including HR & BP: Stable Pain Control: Satisfactory Nausea & Vomiting: Negative Mental Status: Baseline Respiratory Status: Airway Patent Hydration Status: Satisfactory Anesthesia Complications: None
[2022-02-22] MEDS: ACETAMINOPHEN 500 MG TABLET PO SCH ×3 (02:38→20:34)
[2022-02-22] MEDS: IBUPROFEN 600 MG TABLET PO SCH ×4 (02:38→21:18)
--- NOTE | 2022-02-22 10:50 | PROVIDER PROGRESS NOTE ---
Subjective - Prog Note Date Prog Note Date: 02/22/22 Prog Note Time: 10:48 - Subjective Pt reports feeling: Improved (Prob with urination) Subjective: post #1 catheterization was given at 6:45 this morning due to urinary retention. Nursing well Tolerating diet passing flatus normal lochia Will try pyridium and urecholine Objective - Vital Signs/Intake & Output Vital Signs: Vital Signs x48h Temp Pulse Resp BP Pulse Ox 02/22/22 09:19 98.1 F 74 16 103/60 98 02/22/22 06:49 98.4 F Intake & Output: Intake & Output 02/19/22 02/20/22 02/21/22 02/22/22 23:59 23:59 23:59 23:59 Intake Total 5077.303 2374 Output Total 3700 2400 Balance -2508.333 -1300 - Lab Results Fish Bones: 02/21/22 05:40 Other Labs: Lab Results x24hrs 02/21/22 02/21/22 02/21/22 Range/Units 05:45 05:45 05:40 Chlam trachomat DNA PCR NEGATIVE (NEGATIVE) N.gonorrhoeae DNA (PCR) NEGATIVE (NEGATIVE) Group B Strep (PCR) NEGATIVE (NEGATIVE) T. vaginalis (PCR) NEGATIVE (NEGATIVE) Blood Type AB POSITIVE Antibody Screen NEGATIVE Crossmatch IS Only See Detail
[2022-02-22 11:12] LABS: BASOPHILS % (AUTO) 0.2 %; EOSINOPHILS # (AUTO) 0.1 10^3/uL (0.0-0.7); EOSINOPHILS % (AUTO) 0.5 %; LYMPHOCYTES # (AUTO) 2.4 10^3/uL (1.5-3.5); LYMPHOCYTES % (AUTO) 13.5 %; MEAN CORPUSCULAR HEMOGLOBIN 31.3 pg (27.0-31.0); MEAN CORPUSCULAR HGB CONC 33.3 g/dL (32.0-36.0); MEAN CORPUSCULAR VOLUME 93.8 fL (81.0-99.0); MONOCYTES # (AUTO) 1.3 10^3/uL (0.0-1.0); MONOCYTES % (AUTO) 7.6 %; NEUTROPHILS # (AUTO) 13.6 10^3/uL (1.5-6.6); NEUTROPHILS % (AUTO) 77.6 %; PLT - PLATELET COUNT 178 10^3/uL (130-450); RED BLOOD COUNT 2.56 10^6/uL (4.20-5.40); RED CELL DISTRIBUTION WIDTH 12.2 % (12.0-15.0); WHITE BLOOD COUNT 17.5 x10^3/uL (4.8-10.8)
[2022-02-22] MEDS ORDERED: PHENAZOPYRIDINE 100 MG TABLET PO SCH (14:00)
[2022-02-22] MEDS: oxyCODONE 5 MG TABLET PO PRN ×2 (16:37→20:22)
--- NOTE | 2022-02-22 18:26 | PROVIDER PROGRESS NOTE ---
Subjective - Prog Note Date Prog Note Date: 02/22/22 Prog Note Time: 18:25 - Subjective Pt reports feeling: Improved (Self voiding, H/H 12/05 no sx of anemia pain undercontrol iron pills) Objective - Vital Signs/Intake & Output Vital Signs: Vital Signs x48h Temp Pulse Resp BP Pulse Ox 02/22/22 16:24 98.1 F 66 91/55 L 100 02/22/22 13:49 97.7 F 79 21 109/64 100 Intake & Output: Intake & Output 02/19/22 02/20/22 02/21/22 02/22/22 23:59 23:59 23:59 23:59 Intake Total 4649.507 9798 Output Total 3700 2400 Balance -2508.333 -1000 - Lab Results Fish Bones: 02/22/22 11:07 Other Labs: Lab Results x24hrs 02/22/22 02/21/22 02/21/22 Range/Units 11:07 05:45 05:45 WBC 17.5 H (4.8-10.8) x10^3/uL RBC 2.56 L (4.20-5.40) 10^6/uL Hgb 8.0 L (12.0-16.0) g/dL Hct 24.0 L (37.0-47.0) % MCV 93.8 (81.0-99.0) fL MCH 31.3 H (27.0-31.0) pg MCHC 33.3 (32.0-36.0) g/dL RDW 12.2 (12.0-15.0) % Plt Count 178 (130-450) 10^3/uL MPV 10.0 (7.9-10.8) fL Neut # (Auto) 13.6 H (1.5-6.6) 10^3/uL Lymph # (Auto) 2.4 (1.5-3.5) 10^3/uL [place] # (Auto) 1.3 H (0.0-1.0) 10^3/uL Eos # (Auto) 0.1 (0.0-0.7) 10^3/uL Baso # (Auto) 0.0 (0.0-0.1) 10^3/uL Absolute Nucleated RBC 0.00 x10^3/uL Nucleated RBC % 0.0 /100WBC Chlam trachomat DNA PCR NEGATIVE (NEGATIVE) N.gonorrhoeae DNA (PCR) NEGATIVE (NEGATIVE) Group B Strep (PCR) NEGATIVE (NEGATIVE) T. vaginalis (PCR) NEGATIVE (NEGATIVE) Blood Type Antibody Screen Crossmatch IS Only 02/21/22 Range/Units 05:40 WBC (4.8-10.8) x10^3/uL RBC (4.20-5.40) 10^6/uL Hgb (12.0-16.0) g/dL Hct (37.0-47.0) % MCV (81.0-99.0) fL MCH (27.0-31.0) pg MCHC (32.0-36.0) g/dL RDW (12.0-15.0) % Plt Count (130-450) 10^3/uL MPV (7.9-10.8) fL Neut # (Auto) (1.5-6.6) 10^3/uL Lymph # (Auto) (1.5-3.5) 10^3/uL [place] # (Auto) (0.0-1.0) 10^3/uL Eos # (Auto) (0.0-0.7) 10^3/uL Baso # (Auto) (0.0-0.1) 10^3/uL Absolute Nucleated RBC x10^3/uL Nucleated RBC % /100WBC Chlam trachomat DNA PCR (NEGATIVE) N.gonorrhoeae DNA (PCR) (NEGATIVE) Group B Strep (PCR) (NEGATIVE) T. vaginalis (PCR) (NEGATIVE) Blood Type AB POSITIVE Antibody Screen NEGATIVE Crossmatch IS Only See Detail
[2022-02-22] MEDS: DOCUSATE SODIUM 100 MG CAPSULE PO SCH (21:18)
[2022-02-23] MEDS: IBUPROFEN 600 MG TABLET PO SCH ×3 (03:41→15:31)
[2022-02-23] MEDS: oxyCODONE 5 MG TABLET PO PRN ×2 (03:42→15:32)
--- NOTE | 2022-02-23 08:00 | PROVIDER PROGRESS NOTE ---
Subjective - Prog Note Date Prog Note Date: 02/23/22 Prog Note Time: 07:59 - Subjective Pt reports feeling: Improved (Doing well) Objective - Vital Signs/Intake & Output Vital Signs: Vital Signs x48h Temp Pulse Resp BP Pulse Ox 02/23/22 03:30 98.4 F 65 20 111/64 99 Intake & Output: Intake & Output 02/20/22 02/21/22 02/22/22 02/23/22 23:59 23:59 23:59 23:59 Intake Total 7777.250 0647 Output Total 3700 2402 1 Balance -2508.333 -1002 -1 - Objective General Appearance: positive: No acute distress Respiratory: positive: Chest non-tender, Breath sounds nml Cardiovascular: positive: Regular rate & rhythm Abdomen: positive: Non-tender - Lab Results Fish Bones: 02/22/22 11:07 Other Labs: Lab Results x24hrs 02/22/22 Range/Units 11:07 WBC 17.5 H (4.8-10.8) x10^3/uL RBC 2.56 L (4.20-5.40) 10^6/uL Hgb 8.0 L (12.0-16.0) g/dL Hct 24.0 L (37.0-47.0) % MCV 93.8 (81.0-99.0) fL MCH 31.3 H (27.0-31.0) pg MCHC 33.3 (32.0-36.0) g/dL RDW 12.2 (12.0-15.0) % Plt Count 178 (130-450) 10^3/uL MPV 10.0 (7.9-10.8) fL Neut # (Auto) 13.6 H (1.5-6.6) 10^3/uL Lymph # (Auto) 2.4 (1.5-3.5) 10^3/uL [place]elope # (Auto) 1.3 H (0.0-1.0) 10^3/uL Eos # (Auto) 0.1 (0.0-0.7) 10^3/uL Baso # (Auto) 0.0 (0.0-0.1) 10^3/uL Absolute Nucleated RBC 0.00 x10^3/uL Nucleated RBC % 0.0 /100WBC ABX Reporting Has patient been on IV antibiotics over the past 48 hours?: Yes Assessment/Plan - Problem List (1) Anemia Qualifiers: Other causes of anemia: acute posthemorrhagic Discharge Plan Problem Reviewed?: Yes Disposition: 01 Home, Self Care Diet: Regular Activity Restrictions: no sexual intercourse Shower Restrictions: No Driving Restrictions: Yes (untill stablized) Weight Bearing: Partial Weight Additional Instructions or Follow Up instructions: 6 wks No Smoking: If you smoke, Please STOP! Call for help.
[2022-02-23] MEDS: ACETAMINOPHEN 500 MG TABLET PO SCH (08:16)
[2022-02-23] MEDS: DOCUSATE SODIUM 100 MG CAPSULE PO SCH ×2 (08:17→15:32)
--- NOTE | 2022-02-23 08:47 | DISCHARGE SUMMARY ---
Discharge Summary Admit Date: 02/21/22 Discharge Date: 02/23/22 Discharging Provider: Code Status: Attempt Resuscitation Condition at Discharge: Stable - DIAGNOSES Admission Diagnoses: Elderly primigravida, spontaneous rupture of membrane, in labor, term , care elsewhere, hypothyroidism Discharge Diagnoses with Status of Each Condition: The same and Anemia due to acute blood loss - HPI History of Present Illness: This elderly primigravida had care by nurse spa host and Cesar for planned home . When she went into labor she change her mind and came to the hospital for further pain management. She she noticed that her membranes ruptured and she wanted to have epidural pain management. After admission she received epidural and pain management was satisfactory but required to have Pitocin augmentation first saw optimal labor pattern. After prolonged second stage she delivered a male over the intact perineum. She had a second- degree of vaginal laceration but refused to have repair with suture materials. Her placenta remained more than 2 hours and needs to have manual removal under anesthesia in the operating room. course was uneventful and she recover but tired due to low hemoglobin levels. - HOSPITAL COURSE Hospital Course: hospital course was uneventful. Due to low hemoglobin level she felt tired but it was expected. - ALLERGIES Allergies/Adverse Reactions: Allergies Allergy/AdvReac Type Severity Reaction Status Date / Time amoxicillin Allergy Rash Verified 02/02/20 07:24 - PHYSICAL EXAM AT DISCHARGE General Appearance: positive: No acute distress Neck: positive: Nml inspection Respiratory: positive: Chest non-tender, Breath sounds nml Cardiovascular: positive: Regular rate & rhythm Abdomen: positive: Non-tender Skin: positive: Color nml - LABS Result Diagrams: 02/22/22 11:07 - FOLLOW UP Follow Up: [address] Kaufman and by her nurse spa host and utilities service investigator - TIME SPENT Time Spent in Discharge (Minutes): 15
[2022-02-23 09:25] VITALS: BP 115/64
--- NOTE | 2022-03-08 07:34 | Labor Flowsheet ---
Labor Flowsheet Datetime Report Generated by CPN: 03/08/2022 07:34 Datetime: 02/22/2022 00:25 VITAL SIGNS NBP Sys/Cristina/Mean (mmHg): 110 : 64 : 74 Pulse: 79 LaborFlag: Labor Datetime: 02/22/2022 00:24 Temperature (C): 37.1 Datetime: 02/21/2022 23:18 Membranes Ruptured Date/Time: 02/20/2022 04:00 Datetime: 02/21/2022 22:29 COMMUNICATION Communication: Provider at Bedside (Annotations: Drd. Jeung explaining to pt. placenta needs to be delivered. Pt. declined and requested 10 more minutes before attmepting pushing out placenta.) Datetime: 02/21/2022 22:26 Communication Comments: Dr. Jyung at the bedside Datetime: 02/21/2022 21:41 MEDICATIONS Pitocin (milliunits): Decreased to @ 50 Datetime: 02/21/2022 21:30 FHR Baseline Rate : 135 Datetime: 02/21/2022 21:29 SpO2 (%): 100 Pushing Progress: with Pushing Datetime: 02/21/2022 21:25 UTERINE ACTIVITY Monitor Mode: External Frequency (min): 2-3 Quality: Strong Duration (sec): 50-70 Pattern: Normal: <= 5 Contractions in 10 Minutes Resting Tone (Palpate): Relaxed ASSESSMENT A Monitor Mode: External US Variability: Moderate 6-25 bpm Accelerations: None Decelerations: Late Category: Category II Datetime: 02/21/2022 21:24 STAGE 2 Pushing: Coached on Pushing Pushing Position: Pushing with Contractions; Pushing Lithotomy Datetime: 02/21/2022 21:19 Comments: unable to assess categorydue to maternal movement Datetime: 02/21/2022 21:09 Monitor Interventions for FHR: Ultrasound Adjusted Datetime: 02/21/2022 20:51 I/O Interventions: Straight Cath (ml) @ 100 Datetime: 02/21/2022 20:36 Stage 2 Comments: closed knee pushing Datetime: 02/21/2022 20:07 Contraction Comments: unable to determine due to maternal movement Datetime: 02/21/2022 20:03 Procedures: Bedside Ultrasound Done Datetime: 02/21/2022 19:01 Vital Sign Comments: Taken during a contraction Datetime: 02/21/2022 18:35 ANESTHESIA Anesthesia Plans: Epidural Anesthesia Comments: Pump stopped Datetime: 02/21/2022 17:48 VAGINAL EXAM Dilatation (cm): 10.0 Effacement (%): 100 Station: 1 Datetime: 02/21/2022 17:15 Actions for Decelerations: Side to Side Datetime: 02/21/2022 17:02 Stage of : Labor Datetime: 02/21/2022 16:00 PATIENT CARE Oxygen Method: Room Air Datetime: 02/21/2022 15:50 Patient Position/Activity: Left Lateral Patient Care Comments: Feet propped up knees together Datetime: 02/21/2022 15:45 FHR Baseline Changes: No Baseline Change Datetime: 02/21/2022 14:30 Monitor Interventions for UA: [place] Adjusted MONTEVIDEO UNITS (Computed) Contractions in Ten Minutes: 3 Datetime: 02/21/2022 14:20 Exam by: Dr Jyung Datetime: 02/21/2022 13:57 Respirations: 16 Anesthesia Level Check: T9 Datetime: 02/21/2022 13:18 Pain Coping: Sleeping Datetime: 02/21/2022 11:48 PAIN Pain Relief Measures: Epidural Given Pain Assessment Comments: Epidural connected and started Datetime: 02/21/2022 11:33 Epidural Procedure: Test Dose Datetime: 02/21/2022 11:17 PROCEDURE TIME OUT Procedure Verify: Correct Patient Identity; Accurate Procedure Consent Form; Agreement on Procedure to be Done; Correct Patient Position; Addressed Need to Administer Antibiotics or Fluids for Irrigat ion; Safety Precautions Based on Patient History or Medication Use Epidural Positioning: Sitting Datetime: 02/21/2022 10:59 Vaginal Exam Comments: Exam by Dr Tanner. Datetime: 02/21/2022 09:44 Pitocin Checklist: At Least 1 Acceleration of 15 bpm x 15 Seconds in 30 Minutes or Adequate Variabi lity; No More than 1 Late Deceleration Occurred in Past 30 Minutes; No More than 2 Variable Decelerat ions > 60 Seconds in Duration and decreasing >60 bpm in 30 minutes; No More than 5 Uterine Contractio ns in 10 Minutes for any 20 Minute Interval; Uterus Palpates Soft between Contractions Datetime: 02/21/2022 08:53 Amniotic Fluid Color: Light Meconium Amniotic Fluid Amount: Small Membrane Comments: dr tanner at bedside Datetime: 02/21/2022 07:31 Temperature Route: Oral Datetime: 02/21/2022 06:29 Membrane Status: Ruptured Membranes Rupture Method: Spontaneous Amniotic Fluid Odor: Normal MATERNAL ASSESSMENT Level of Consciousness: Alert DTR's/Clonus: No Clonus Headache: Denies Nausea/Vomiting: Denies RUQ Epigastric Pain: Denies
== END 2022-02-23 16:30 | disposition home or self-care (01) | DRG 806 ==
LOC: WFO 03:49 → FBP 04:31 → WFO 05:16 → FBP 05:17 → UNDOADMIN 05:17
PROVIDERS: ADMIT Obstetrics & Gynecology; ATTEND Obstetrics & Gynecology
PROC: 10E0XZZ Delivery of Products of Conception, External Approach (ICD-10-PCS; principal; 2022-02-21)
PROC: 10D17Z9 Manual Extraction of Products of Conception, Retained, Via Natural or Artificial Opening (ICD-10-PCS; 2022-02-22)
DX: O48.0 Post-term pregnancy (principal); D62 Acute posthemorrhagic anemia; Z37.0 Single live birth; O72.2 Delayed and secondary postpartum hemorrhage; Z3A.40 40 weeks gestation of pregnancy; O70.1 Second degree perineal laceration during delivery; O63.1 Prolonged second stage (of labor); O90.81 Anemia of the puerperium; O99.284 Endocrine, nutritional and metabolic diseases complicating childbirth; E03.9 Hypothyroidism, unspecified; O77.0 Labor and delivery complicated by meconium in amniotic fluid; O76 Abnormality in fetal heart rate and rhythm complicating labor and delivery; R33.9 Retention of urine, unspecified; O90.89 Other complications of the puerperium, not elsewhere classified; Z79.890 Hormone replacement therapy
CPT/HCPCS: 36415; 85025; 86850; 86900; 86901; 86920; 87491; 87591; 87661; 87797; A9270; J7120; 99215

== ENCOUNTER 2022-03-18 11:54 | Outpatient (CLI) | payer OTHER ==
[2022-03-18 15:45] LABS: % IRON SATURATION 36 % (20-50); IRON 106 ug/dL (28-170); TOTAL IRON BINDING CAPACITY 293 ug/dL (250-450); TRANSFERRIN 209 mg/dL (192-382)
[2022-03-18 15:51] LABS: T4 (THYROXINE) 8.56 ug/dL (6.09-12.23)
[2022-03-18 15:53] LABS: THYROID STIMULATING HORMONE 1.36 uIU/mL (0.34-5.60)
[2022-03-18 15:55] LABS: FREE T3 4.23 pg/mL (2.5-3.9)
[2022-03-18 15:58] LABS: FERRITIN 18.8 ng/mL (11.0-306.8)
== END 2022-03-18 11:55 | disposition home or self-care (01) ==
LOC: LAB.S 11:54
PROVIDERS: ATTEND Naturopath
DX: E03.9 Hypothyroidism, unspecified (principal); R53.83 Other fatigue
CPT/HCPCS: 36415; 82728; 83540; 84436; 84443; 84466; 84481

== ENCOUNTER 2022-06-04 11:49 | Outpatient (CLI) | payer OTHER ==
[2022-06-04 15:31] LABS: THYROID STIMULATING HORMONE 2.89 uIU/mL (0.34-5.60)
[2022-06-04 15:32] LABS: FREE T4 (FREE THYROXINE) 1.07 ng/dL (0.58-1.64)
== END 2022-06-04 11:50 | disposition home or self-care (01) ==
LOC: LAB.S 11:49
PROVIDERS: ATTEND Naturopath
DX: E03.9 Hypothyroidism, unspecified (principal)
CPT/HCPCS: 36415; 84439; 84443

== ENCOUNTER 2022-12-06 11:26 | Outpatient (CLI) | payer OTHER ==
[2022-12-06 11:48] LABS: BASOPHILS % (AUTO) 0.4 %; EOSINOPHILS # (AUTO) 0.1 10^3/uL (0.0-0.7); EOSINOPHILS % (AUTO) 1.1 %; HCT - HEMATOCRIT 35.1 % (37.0-47.0); HGB - HEMOGLOBIN 12.3 g/dL (12.0-16.0); LYMPHOCYTES # (AUTO) 2.3 10^3/uL (1.5-3.5); MEAN CORPUSCULAR HEMOGLOBIN 31.6 pg (27.0-31.0); MEAN CORPUSCULAR VOLUME 90.2 fL (81.0-99.0); MONOCYTES # (AUTO) 0.6 10^3/uL (0.0-1.0); MONOCYTES % (AUTO) 5.8 %; NEUTROPHILS # (AUTO) 6.7 10^3/uL (1.5-6.6); NEUTROPHILS % (AUTO) 68.5 %; PLT - PLATELET COUNT 282 10^3/uL (130-450); RED BLOOD COUNT 3.89 10^6/uL (4.20-5.40); RED CELL DISTRIBUTION WIDTH 11.9 % (12.0-15.0); WHITE BLOOD COUNT 9.8 x10^3/uL (4.8-10.8)
[2022-12-07 04:08] LABS: HBsAG SCREEN Negative (Negative); HCV AB Non Reactive (Non Reactive)
[2022-12-07 05:12] LABS: HIV SCREEN 4TH GENERATION Non Reactive (Non Reactive)
[2022-12-07 08:09] LABS: RPR Non Reactive (Non Reactive)
[2022-12-07 09:09] LABS: VARICELLA-ZOSTER AB IGG >4000 index (Immune >165)
== END 2022-12-06 11:27 | disposition home or self-care (01) ==
LOC: LAB 11:26
PROVIDERS: ATTEND Obstetrics & Gynecology
DX: Z34.90 Encounter for supervision of normal pregnancy, unspecified, unspecified trimester (principal)
CPT/HCPCS: 36415; 85025; 86592; 86762; 86787; 86803; 86850; 86900; 86901; 87340; 87389

== ENCOUNTER 2023-03-28 11:26 | Outpatient (CLI) | payer OTHER ==
[2023-03-28 14:59] LABS: THYROID STIMULATING HORMONE 2.88 uIU/mL (0.34-5.60)
[2023-03-29 20:07] LABS: THYROGLOBULIN ANTIBODY 1.4 IU/mL (0.0-0.9)
== END 2023-03-28 11:27 | disposition home or self-care (01) ==
LOC: LAB.S 11:26
PROVIDERS: ATTEND Naturopath
DX: E03.9 Hypothyroidism, unspecified (principal)
CPT/HCPCS: 36415; 84439; 84443; 84481; 86376; 86800

== ENCOUNTER 2023-04-17 11:54 | Outpatient (CLI) | payer OTHER ==
[2023-04-17 14:40] LABS: BASOPHILS % (AUTO) 0.6 %; EOSINOPHILS # (AUTO) 0.1 10^3/uL (0.0-0.7); EOSINOPHILS % (AUTO) 0.7 %; HCT - HEMATOCRIT 35.1 % (37.0-47.0); HGB - HEMOGLOBIN 11.8 g/dL (12.0-16.0); LYMPHOCYTES # (AUTO) 1.4 10^3/uL (1.5-3.5); LYMPHOCYTES % (AUTO) 20.4 %; MEAN CORPUSCULAR HEMOGLOBIN 31.3 pg (27.0-31.0); MEAN CORPUSCULAR HGB CONC 33.6 g/dL (32.0-36.0); MEAN CORPUSCULAR VOLUME 93.1 fL (81.0-99.0); MEAN PLATELET VOLUME 9.6 fL (7.9-10.8); MONOCYTES # (AUTO) 0.7 10^3/uL (0.0-1.0); MONOCYTES % (AUTO) 9.5 %; NEUTROPHILS # (AUTO) 4.7 10^3/uL (1.5-6.6); NEUTROPHILS % (AUTO) 68.4 %; PLT - PLATELET COUNT 248 10^3/uL (130-450); RED BLOOD COUNT 3.77 10^6/uL (4.20-5.40); RED CELL DISTRIBUTION WIDTH 12.2 % (12.0-15.0); WHITE BLOOD COUNT 6.8 x10^3/uL (4.8-10.8)
[2023-04-18 20:13] LABS: THYROGLOBULIN ANTIBODY 1.3 IU/mL (0.0-0.9)
== END 2023-04-17 11:55 | disposition home or self-care (01) ==
LOC: LAB.S 11:54
DX: O99.013 Anemia complicating pregnancy, third trimester (principal); O99.283 Endocrine, nutritional and metabolic diseases complicating pregnancy, third trimester; E03.9 Hypothyroidism, unspecified
CPT/HCPCS: 36415; 81599; 84436; 84439; 84443; 84479; 85025; 86376; 86800

== ENCOUNTER 2023-06-23 16:45 | Emergency (ER) | payer OTHER ==
[2023-06-23 17:20] VITALS: BP 103/68; O2SAT 96
--- NOTE | 2023-06-23 18:33 | Ultrasound Report ---
PROCEDURE: Duplex Ext Veins Left INDICATIONS: recent vaginal , ankle pain without injury TECHNIQUE: Real-time imaging, as well as color and pulse Doppler interrogation, were performed of the lower extr emity deep veins from the inguinal ligament to the popliteal fossa. Attempted visualization of the ca lf veins was performed. COMPARISON: None. FINDINGS: The deep veins are normally compressible, and free of intraluminal thrombus. Color and pu lse Doppler demonstrate normal phasic intraluminal flow. There is normal augmentation response to di stal compression maneuver. IMPRESSION: No deep venous thrombosis of the visualized left lower extremity. Reviewed by: Isra Estrada MD on 06/23/2023 5:31 PM REGI Approved by: Isra Estrada MD on 06/23/2023 5:31 PM REGI Station ID: [id number]
--- NOTE | 2023-06-23 19:10 | ED Physician Documentation ---
PD HPI LOWER EXT INJURY - Stated complaint Stated Complaint: L LEG PX - Chief complaint Chief Complaint: Ext Problem - History obtained from History obtained from: Patient - History of Present Illness PD HPI LOW EXT INJURY LOCATION: Left, Lower leg, Ankle Type of injury: Other (onset of pain without injury yesterday and increased today. Not hurting in upper calf.). No: Fall, Twist Timing - onset: How many days ago (2) Timing - duration: Days (2) Timing - details: Gradual onset, Still present Worsened by: Moving. No: Palpating Associated symptoms: Swelling (mild around ankle.). No: Weakness, Numbness Contributing factors: Other (recent with term vaginal delivery just 5 days ago.) Similar symptoms before: Has not had sx before Review of Systems Constitutional: denies: Fever, Chills Cardiac: denies: Chest pain / pressure Respiratory: denies: Dyspnea Skin: denies: Rash, Lesions Neurologic: denies: Focal weakness, Numbness PD PAST MEDICAL HISTORY - Past Medical History Past Medical History: No Cardiovascular: None Respiratory: None - Past Surgical History Past Surgical History: Yes /[employer]: Dilation and currettage - Present Medications Home Medications: Ambulatory Orders Medication Instructions Recorded Confirmed Acetaminophen [Acetaminophen Extra 1,000 mg PO Q8H PRN #60 tablet 02/23/22 Strength] Docusate Sodium [Colace Clear] 50 mg PO BID #60 cap 02/23/22 Ibuprofen [Motrin] 600 mg PO Q6H PRN #30 tab 02/23/22 oxyCODONE [Roxicodone] 2.5 - 5 mg PO Q4H PRN #24 tablet 02/23/22 - Allergies Allergies/Adverse Reactions: Allergies Allergy/AdvReac Type Severity Reaction Status Date / Time amoxicillin Allergy Rash Verified 06/23/23 17:18 - Social History Does the pt smoke?: No Smoking Status: Never smoker - Immunizations Immunizations are current?: Yes PD ED PE NORMAL - Vitals Vital signs reviewed: Yes - General General: Alert and oriented X 3, No acute distress, Well developed/nourished - Derm Derm: Normal color, Warm and dry - Extremities Extremities: Other (left ankle without tenderness per se. Inversion and eversion stress without pain. NO redness, rash, sores. Upper calf not tender. ) - Neuro Neuro: Alert and oriented X 3, No motor deficit, No sensory deficit Results - Vitals Vitals: Vital Signs - 24 hr 06/23/23 17:13 Temperature 36.2 C L Heart Rate 84 Respiratory 16 Rate Blood Pressure 103/68 O2 Saturation 96 Oxygen O2 Source Room air - Rads (name of study) duplex US Relevant Findings:: Prelim report reviewed (no DVT), EMP independent interpretation of test PD Medical Decision Making - ED course Complexity details: reviewed results (US showing no DVT. Patient without injury of area. Deeper pain. No pain on ROM. discussed potential to repeat US in a week or so if suptoms worsen but presume sprain for now. ), considered differential, d/w patient Departure - Departure Disposition: 01 Home, Self Care Clinical Impression: Ankle pain Condition: Stable Record reviewed to determine appropriate education?: Yes Comments: No blood clots on ultrasound. This is about 98% accurate for lower calf area, so follow up if increasing or other symptoms. Forms: PCP List Discharge Date/Time: 06/23/23 19:34
== END 2023-06-23 19:34 | disposition home or self-care (01) ==
LOC: ED 16:45
DX: M25.572 Pain in left ankle and joints of left foot (principal)
CPT/HCPCS: 99283; 99284